=== PATIENT | female | born 2000 | race Caucasian/White ===

== ENCOUNTER → 2022-06-08 | Outpatient (CLI) | payer OTHER ==
--- NOTE | 2022-06-08 10:33 | US ---
EXAMINATION TYPE: Transabdominal DATE OF EXAM: 06/08/2022 9:53 AM COMPARISON: NONE CLINICAL HISTORY: Z36.89 CONFIRM GESTATIONAL AGE AND VIABILITY. Confirm dates. Positive beta hCG test . EXAM PERFORMED: Transabdominal (TA) EXAM MEASUREMENTS: GESTATIONAL AGE / DATING Physician Established: (10 weeks/4 days) EDC: 12/31/2022 Dates by LMP: (10 weeks/4 days) EDC: 12/31/2022 Dates by First Scan: No previous here Dates by Current Scan for: (11 weeks/0 days) EDC: 12/28/2022 MATERNAL ANATOMY Uterus: 9.1 x 6.7 x 8.7cm Right Ovary: 3.4 x 2.1 x 2.6cm, hypoechoic area seen measuring 1.7 x 1.4 x 1.8cm Left Ovary: 1.9 x 2.0 x 2.3cm, hypoechoic area seen measuring 1.9 x 1.0 x 1.9cm Post CDS / Adnexa: wnl Presence of free fluid: no Presence of corpus luteal cyst: possible right or left ovary Presence of subchorionic bleed: no GESTATION / SURVEY CRL: 4.1cm (11 weeks/0 days) Heart Rate: 170 bpm Rhythm: Normal IUP: Viable IUP Single live intrauterine gestation as pole and gestational sac identified. Yolk sac not clearly seen. No free fluid in pelvic cul-de-sac. Both ovaries identified with bilateral round to oval 1.0 to 2.0 cm hypoechoic lesions could reflect a corpus luteal cyst in either ovary. No extraovarian adnexal masses noted. IMPRESSION: Single live intrauterine gestation. Mean crown-rump length 4.1 cm corresponding to 11 wee ks 0 day old fetus.
== END | disposition home or self-care (01) ==
LOC: RADUSWWP 09:20
PROVIDERS: ATTEND Obstetrics & Gynecology
DX: Z36.89 Encounter for other specified antenatal screening (principal); Z3A.11 11 weeks gestation of pregnancy
CPT/HCPCS: 76801

== ENCOUNTER 2022-09-27 17:02 | Outpatient (CLI) | payer OTHER ==
[2022-09-27 18:52] LABS: Appearance,Urine Clear (Clear); Bilirubin,Urine Negative (Negative); Blood,Urine Negative (Negative); Color,Urine Light Yellow; Glucose,Urine (UA) Negative (Negative); Ketones,Urine Negative (Negative); Leukocyte Esterase,Urine Negative (Negative); Nitrite,Urine Negative (Negative); Protein,Urine Negative (Negative); Specific Gravity,Urine 1.009 (1.001-1.035); Urobilinogen,Urine <2.0 mg/dL (<2.0)
[2022-09-27 20:10] VITALS: BP 124/74; PULSE 97; RESP 16; TEMP 96.9
--- NOTE | 2022-09-29 12:01 | P.MSEPDOC ---
Presenting Problems - Arrival Data Date of Arrival on Unit: 09/27/22 Time of Arrival on Unit: 17:07 Mode of Transport: Ambulatory - Complaint OB-Reason for Admission/Chief Complaint: Vaginal Bleeding, Other Comment: 26 weeks and 3 days, braxon manning, spotting for 2 days. Medical History - Information : 1 Para: 0 Term: 0 : 0 Abortions: Spontaneous or Elective: 0 Number of Living Children: 0 - Gestational Age Gestational Age by MARKUS (wks/days): 26 Weeks and 3 Days Review of Systems - Review of Systems Constitutional: No problems Breast: No problems ENT: No problems Cardiovascular: No problems Respiratory: No problems Gastrointestinal: No problems Genitourinary: No problems Musculoskeletal: No problems Neurological: No problems Skin: No problems Vital Signs - Temperature Temperature: 96.9 F Temperature Source: Temporal Artery Scan - Pulse Right Radial Pulse Rate: 97 Pulse Assessment Method: Automatic Cuff - Respirations Respiratory Rate: 16 Oxygen Delivery Method: Room Air O2 Sat by Pulse Oximetry: 97 - Blood Pressure Right Arm Blood Pressure: 124/74 Blood Pressure Mean: 90 Blood Pressure Source: Automatic Cuff Medical Screen Scoring - Cervical Exam Dilation (cm): 0 Effacement (%): 0 - Uterine Contractions Intensity: Absent - Assessment - Baby A Baseline FHR: 145 Heart Rate - NICHD Category: Category I (Normal) Physician Notification - Physician Notified Physician Notified Date: 09/27/22 Physician Notified Time: 17:55 Physician: Sathya Ford New Order Received: Yes (monitor, u/a, cervical check. call results) Maternal Triage Index - Scheduled/Requesting Priority 5 Scheduled/Requesting Priority 5: Yes Criteria Met for Priority 5: spotting 3 days ago after intercourse. cramping in lower abd. yesterday and last night. pain scale 3-4. nothing now. urine clear. cervix closed Disposition - Disposition OB Disposition: Discharge to home, Written follow up instructions reviewed Discharge Date: 09/27/22 Discharge Time: 19:35 I agree with the RN Medical Screening Exam: Yes Case reviewed; plan agreed upon as documented in EMR&OBIX.: Yes Diagnosis: FALSE LABOR BEFORE 37 COMPLETED WEEKS OF GEST, THIRD TRI
== END 2022-09-27 19:35 | disposition home or self-care (01) ==
LOC: FBPOP 17:02
PROVIDERS: ATTEND Obstetrics & Gynecology
DX: O47.02 False labor before 37 completed weeks of gestation, second trimester (principal); Z3A.26 26 weeks gestation of pregnancy
CPT/HCPCS: 81003; G0463; 99213

== ENCOUNTER 2022-11-07 17:53 | Outpatient (CLI) | payer OTHER ==
[2022-11-07 19:20] VITALS: BP 124/68; PULSE 113; RESP 16; TEMP 98.6
--- NOTE | 2022-12-01 07:51 | P.MSEPDOC ---
Presenting Problems - Arrival Data Date of Arrival on Unit: 11/07/22 Time of Arrival on Unit: 17:53 Mode of Transport: Ambulatory - Complaint OB-Reason for Admission/Chief Complaint: Other Comment: v/d last vomited at noon Medical History - Information : 1 Para: 0 Term: 0 : 0 Abortions: Spontaneous or Elective: 0 Number of Living Children: 0 - Gestational Age Gestational Age by MARKUS (wks/days): 32 Weeks and 2 Days Review of Systems - Review of Systems Constitutional: No problems Breast: No problems ENT: No problems Cardiovascular: No problems Respiratory: No problems Gastrointestinal: No problems Genitourinary: No problems Musculoskeletal: No problems Neurological: No problems Skin: No problems Vital Signs - Temperature Temperature: 98.6 F Temperature Source: Axillary - Pulse Right Brachial Pulse Rate: 113 Pulse Assessment Method: Automatic Cuff - Respirations Respiratory Rate: 16 Oxygen Delivery Method: Room Air - Blood Pressure Right Arm Blood Pressure: 124/68 Blood Pressure Mean: 86 Blood Pressure Source: Automatic Cuff Medical Screen Scoring - Assessment - Baby A Baseline FHR: 145 Heart Rate - NICHD Category: Category I (Normal) NST: Reactive Physician Notification - Physician Notified Physician Notified Date: 11/07/22 Physician Notified Time: 18:10 Physician: Vijaya Padna New Order Received: Yes - Notification Comment Comment: reported pt visit to triage with complaints of d/v, last vomited around noon this afternoon. would like pt to be orally hydrated and have a popsicle, if tolerated she can be discharged. 1900 reported pt tolerating hydration well, having some contractions, rates her pain at zero. pt may be discharged home Maternal Triage Index - Non-Urgent/Priority 4 Non-Urgent Priority 4: Yes Criteria Met for Priority 4: vomiting Disposition - Disposition OB Disposition: Discharge to home Discharge Date: 11/07/22 Discharge Time: 19:05 I agree with the RN Medical Screening Exam: Yes Case reviewed; plan agreed upon as documented in EMR&OBIX.: Yes Diagnosis: VOMITING OF , UNSPECIFIED
== END 2022-11-07 19:05 | disposition home or self-care (01) ==
LOC: FBPOP 17:53
PROVIDERS: ATTEND Obstetrics & Gynecology
DX: O21.9 Vomiting of pregnancy, unspecified (principal); Z3A.32 32 weeks gestation of pregnancy
CPT/HCPCS: 59025; G0463; 99213

== ENCOUNTER 2022-12-15 11:44 | Inpatient (IN) | payer OTHER ==
[2022-12-15] MEDS ORDERED: TERBUTALINE 1 MG/ML VIAL SQ PRN (14:32)
[2022-12-15] MEDS ORDERED: LIDOCAINE 0.5% (PF) 5 MG/ML (50 ML SDV) SQ PRN (14:32)
[2022-12-15] MEDS ORDERED: OXYTOCIN 30 UNITS/500 ML NS 30 UNIT in SALINE 1 500ML.BAG IV SCH ×2 (14:45→18:30)
[2022-12-15 15:02] LABS: Basophils % (A) 0 %; Eosinophils % (A) 0 %; HCT 40.7 % (34.0-46.0); HGB 13.2 gm/dL (11.4-16.0); Lymphocytes # (A) 1.7 k/uL (1.0-4.8); Lymphocytes % (A) 12 %; MCH 26.5 pg (25.0-35.0); MCHC 32.5 g/dL (31.0-37.0); MCV 81.7 fL (80.0-100.0); Monocytes # (A) 0.4 k/uL (0-1.0); Monocytes % (A) 3 %; Neutrophils # (A) 11.9 k/uL (1.3-7.7); Neutrophils % (A) 84 %; Platelet Count 259 k/uL (150-450); RBC 4.97 m/uL (3.80-5.40); RDW 14.5 % (11.5-15.5); WBC 14.3 k/uL (3.8-10.6)
[2022-12-15] MEDS: LACTATED RINGERS 1,000 ML IV SCH ×2 (15:23→16:50)
[2022-12-15] MEDS ORDERED: ROPIVACAINE 5 MG/ML 20 ML AMPULE ONE (15:56)
[2022-12-15] MEDS ORDERED: SODIUM CHLORIDE 0.9% 100 ML BAG ONE (15:56)
[2022-12-15] MEDS ORDERED: fentaNYL (PF) 50 MCG/ML 5 ML AMP ONE (15:56)
[2022-12-15] MEDS ORDERED: LANOLIN CREAM 5 GM TUBE TOPICAL PRN (18:26)
[2022-12-15] MEDS ORDERED: SIMETHICONE 80 MG CHEWABLE PO PRN (18:26)
[2022-12-15] MEDS ORDERED: ZOLPIDEM 5 MG TAB PO PRN (18:26)
[2022-12-15] MEDS ORDERED: bisacodyL 10 MG SUPP RECTAL PRN (18:26)
[2022-12-15] MEDS ORDERED: HYDROCORTISONE 2.5% RECTAL CREAM 30 GM TUBE RECTAL PRN (18:26)
[2022-12-15] MEDS ORDERED: diphenhydrAMINE 25 MG CAP PO PRN (18:26)
[2022-12-15] MEDS ORDERED: BENZOCAINE/MENTHOL SPRAY 1 GM/SPRAY AEROSOL TOPICAL PRN (18:26)
[2022-12-15] MEDS ORDERED: ACETAMINOPHEN TAB 325 MG TAB PO PRN (18:26)
[2022-12-15] MEDS ORDERED: diphenhydrAMINE 50 MG/ML 1 ML VIAL IVP PRN (18:26)
[2022-12-15] MEDS ORDERED: LACTATED RINGERS 1,000 ML IV SCH (18:30)
--- NOTE | 2022-12-15 18:34 | P.HPOB ---
History of Present Illness H&P Date: 12/15/22 Chief Complaint: Contractions This patient is a pleasant 22-year-old 1 para 0 female estimated date of confinement 12/31/2022 estimated gestational age 37-5/7 weeks gestation who is admitted to labor and delivery with complaints of regular painful contractions. On admission patient was 2-3 cm dilated and progresses to 4 cm dilated. Patient is felt to be in active labor. care has been uncomplicated. Review of Systems Genitourinary: Reports Menstruation: Reports amenorrhea Past Medical History Past Medical History: No Reported History History of Any Multi-Drug Resistant Organisms: None Reported Past Surgical History: No Surgical Hx Reported Past Anesthesia/Blood Transfusion Reactions: No Reported Reaction Past Psychological History: Anxiety Smoking Status: Never smoker Past Alcohol Use History: None Reported Past Drug Use History: None Reported - Past Family History Mother History Unknown: Yes Family Medical History: Hyperlipidemia Medications and Allergies Home Medications Medication Instructions Recorded Confirmed Type Hem-Mcwc-Clnpn Acid 1 tab PO DAILY 09/27/22 12/15/22 History [-U Capsule (formulary)] Allergies Allergy/AdvReac Type Severity Reaction Status Date / Time No Known Allergies Allergy Verified 12/15/22 11:57 Exam Vital Signs Temp Pulse Resp BP Pulse Ox 12/15/22 14:55 98.1 F 96 16 130/77 98 12/15/22 14:31 98.1 F 96 16 130/77 98 12/15/22 11:57 98.1 F 94 16 130/77 Intake and Output 12/15/22 12/15/22 12/15/22 06:59 14:59 22:59 Other: # Voids 1 Weight 99.79 kg - OBG Physical Exam Abdomen: bowel sounds normal, no diffuse tenderness, no bruit present, no guarding noted, no hepatomegaly, no splenomegaly, no mass Vulva: both: normal Vagina: normal moisture, no discharge Cervix: no lesion (On admission patient is 4 cm dilated completely effaced -2 station.), no discharge Uterus: enlarged Results labs show she is O positive, rubella immune, RPR is nonreactive, hepatitis B is negative, HIV is nonreactive, group B strep was negative, Glucola was normal, most recent ultrasound showed baby 6 lbs. 13 oz. Result Diagrams: 12/15/22 14:50 Abnormal Lab Results - Last 24 Hours (Table) 12/15/22 Range/Units 14:50 WBC 14.3 H (3.8-10.6) k/uL Neutrophils # 11.9 H (1.3-7.7) k/uL Assessment and Plan Assessment: This is a pleasant 22-year-old 1 para 0 female 37-5/7 weeks' gestation admitted to labor and delivery in active labor. Plan is anticipate vaginal delivery. (1) 37 or more weeks gestation of Current Visit: Yes Status: Acute Code(s): [id number] - SNOMED Code(s): 80468278 (2) Active labor Current Visit: Yes Status: Acute Code(s): [id number] - SNOMED Code(s): 41329 6002
--- NOTE | 2022-12-15 18:37 | P.PROBDLV ---
Vaginal Delivery Note - . Vaginal Delivery Note: Normal spontaneous vaginal delivery viable female Apgars are 9 and 9 delivery time is 1749 hrs. Please see dictated H&P for intimate details of this patient's admission. In brief summary this is a pleasant 22-year-old 1 para 0 female 37-5/7 weeks admitted in active labor. Patient is artificial rupture membranes at 4 cm dilated for clear fluid labor progresses and she does get an epidural for pain control. Patient subsequently progresses quickly to 8-9 cm dilated and then does have a bradycardic episode. At this time position changes and IV fluids were instituted and this resolved. Patient then does get to complete pushes the head to the perineum. Posterior perineum is supported controlled delivery of 's head over the intact perineum. Infant's head is straight occiput anterior presentation. Mouth and nares are bulb suctioned. Patient is instructed to breathe. There is no evidence of a nuchal cord. The infant's anterior shoulder then spontaneously delivers followed by the rest of this 's body. This is a vigorous viable female Apgars are 9 and 9 delivery time is 1749 hrs. After delivery of the the infant is late on the mother's abdomen. The cord is very short therefore is doubly clamped and c ut. It appears to be trivascular. The placenta is then spontaneously delivered intact. Estimated blood loss is 250 mL. Inspection of the perineum shows a right vaginal sulcus tear. A right angle is placed and I'm able to easily visualize the apex of this tear and then is then reapproximated using a 3-0 Vicryl running locked fashion. Inspection of the rest the perineum shows a second-degree laceration and this is repaired with 3-0 Vicryl usual fashion. Additional sutures are placed posteriorly to reapproximate the tear. Excellent reapproximation is noted. All counts are correct 3. There are no complications. Infant and mother are stable in delivery room.
[2022-12-15] MEDS ORDERED: SENNOSIDES-DOCUSATE SODIUM 1 EACH TAB PO SCH (20:00)
[2022-12-16] MEDS: IBUPROFEN 600 MG TAB PO PRN ×2 (00:16→06:49)
--- NOTE | 2022-12-16 05:50 | P.PNOBGVD ---
Subjective - Subjective Patient reports: Reports appetite normal, Reports voiding normally, Reports pain well controlled, Reports ambulating normally : doing well Objective - Latest Vital Signs Latest vital signs: Vital Signs Temp Pulse Resp BP Pulse Ox 12/16/22 04:00 80 17 115/72 99 12/15/22 23:48 98.8 F 98 17 115/78 99 12/15/22 20:27 104 H 17 116/61 12/15/22 19:57 96 17 124/65 12/15/22 19:27 98 17 130/77 12/15/22 19:12 93 16 129/77 12/15/22 18:56 102 H 16 126/70 12/15/22 18:42 97 16 119/70 12/15/22 18:27 97 16 121/70 12/15/22 14:55 98.1 F 96 16 130/77 98 12/15/22 14:31 98.1 F 96 16 130/77 98 12/15/22 11:57 98.1 F 94 16 130/77 Intake and Output 12/15/22 12/15/22 12/16/22 14:59 22:59 06:59 Output Total 415 Balance -415 Output: Estimated Blood Loss 250 Output, Quantitative 165 Blood Loss Other: # Voids 1 Weight 99.79 kg - Exam Lungs: bilateral: normal Chest: Normal S1, Normal S2 Extremities: Present: normal Abdomen: Present: normal appearance, soft Uterus: Present: normal, firm - Labs Labs: Abnormal Lab Results - Last 24 Hours (Table) 12/15/22 Range/Units 14:50 WBC 14.3 H (3.8-10.6) k/uL Neutrophils # 11.9 H (1.3-7.7) k/uL Assessment and Plan Assessment: day #1. Patient is resting without complaints she wishes to go home later today. Vital signs are stable and she is afebrile. Uterus is firm nontender and she is having normal lochia. CBC is pending at time of this dictation. Plan is to continue routine care, check CBC, most likely discharge home later today. (1) 37 or more weeks gestation of Current Visit: Yes Status: Acute Code(s): [id number] - SNOMED Code(s): 25992660 (2) Active labor Current Visit: Yes Status: Acute Code(s): [id number] - SNOMED Code(s): 617888045
--- NOTE | 2022-12-16 05:53 | P.DS ---
Providers Date of admission: 12/15/22 13:53 Expected date of discharge: 12/16/22 Attending physician: Sathya Ford Primary care physician: Stated None - Discharge Diagnosis(es) (1) 37 or more weeks gestation of Current Visit: Yes Status: Acute (2) Active labor Current Visit: Yes Status: Acute Hospital Course: Please see dictated H&P for intimate details of this patient's admission. Brief summary is a pleasant 22-year-old 1 para 0 female 37-5/7 weeks who presents to labor and delivery in active labor. Patient quickly goes on have a vaginal delivery of viable female infant. Please see dictated delivery note. day 1 she is feeling well wishes to go home. Patient's felt be stable for discharge home follow up with me in 6 weeks. Procedures: Normal spontaneous vaginal delivery Patient Condition at Discharge: Good Plan - Discharge Summary New Discharge Prescriptions: New Ibuprofen [Motrin] 600 mg PO Q6HR PRN #30 tab PRN Reason: Mild Pain (Scale 1 To 3) No Action Ywu-Iyks-Rlzvh Acid [-U Capsule (formulary)] 1 tab PO DAILY Discharge Medication List Neq-Xkmv-Rzyfa Acid [-U Capsule (formulary)] 1 tab PO DAILY 09/27/22 [History] Ibuprofen [Motrin] 600 mg PO Q6HR PRN #30 tab 12/16/22 [Rx] Follow up Appointment(s)/Referral(s): Sathya Ford MD [STAFF PHYSICIAN] - 6 Weeks Patient Instructions/Handouts: Vaginal Delivery (DC) Activity/Diet/Wound Care/Special Instructions: No intercourse or anything per vagina for 6 weeks. Please call if any fever, chills, excessive vaginal bleeding, and/or abdominal pain. Discharge Disposition: HOME SELF-CARE
[2022-12-16 06:30] LABS: Basophils % (A) 0 %; Eosinophils % (A) 0 %; HCT 31.9 % (34.0-46.0); HGB 10.4 gm/dL (11.4-16.0); Lymphocytes # (A) 1.9 k/uL (1.0-4.8); Lymphocytes % (A) 14 %; MCH 26.8 pg (25.0-35.0); MCHC 32.5 g/dL (31.0-37.0); MCV 82.7 fL (80.0-100.0); Mean Platelet Volume 10.1; Monocytes # (A) 0.7 k/uL (0-1.0); Monocytes % (A) 5 %; Neutrophils # (A) 11.3 k/uL (1.3-7.7); Neutrophils % (A) 80 %; Platelet Count 194 k/uL (150-450); RBC 3.86 m/uL (3.80-5.40); RDW 14.7 % (11.5-15.5); WBC 14.1 k/uL (3.8-10.6)
[2022-12-16 09:05] VITALS: RESP 16
[2022-12-16 16:41] VITALS: BP 102/61; PULSE 100; TEMP 97.9
--- NOTE | 2022-12-16 18:52 | P.MSEPDOC ---
Presenting Problems - Arrival Data Date of Arrival on Unit: 12/15/22 Time of Arrival on Unit: 11:50 Mode of Transport: Ambulatory - Complaint OB-Reason for Admission/Chief Complaint: Possible Onset of Labor Comment: pt arrived c/o sparadic copntractions but denies any leaking of fluids since tuesday Medical History - Information : 1 Para: 0 Term: 0 : 0 Abortions: Spontaneous or Elective: 0 Number of Living Children: 0 - Gestational Age Gestational Age by MARKUS (wks/days): 37 Weeks and 5 Days Review of Systems - Review of Systems Constitutional: No problems Breast: No problems ENT: No problems Cardiovascular: No problems Respiratory: No problems Gastrointestinal: No problems Genitourinary: No problems Musculoskeletal: No problems Neurological: No problems Skin: No problems Vital Signs - Temperature Temperature: 97.9 F Temperature Source: Oral - Pulse Brachial Pulse Rate: 100 Pulse Assessment Method: Automatic Cuff - Respirations Respiratory Rate: 16 Oxygen Delivery Method: Room Air - Blood Pressure Right Arm Blood Pressure: 102/61 Blood Pressure Mean: 74 Blood Pressure Source: Automatic Cuff Medical Screen Scoring - Cervical Exam Dilation (cm): 4 Membranes: Intact - Assessment - Baby A Baseline FHR: 140 Heart Rate - NICHD Category: Category I (Normal) Physician Notification - Physician Notified Physician Notified Date: 12/15/22 Physician Notified Time: 12:45 - Notification Comment Comment: pt admitted for labor Disposition - Disposition OB Disposition: Admit I agree with the RN Medical Screening Exam: Yes Case reviewed; plan agreed upon as documented in EMR&OBIX.: Yes Diagnosis: ENCOUNTER FOR FULL-TERM UNCOMPLICATED DELIVERY
== END 2022-12-16 19:00 | disposition home or self-care (01) | DRG 560 ==
LOC: FBPOP 11:44 → 4FBP 13:53
PROVIDERS: ADMIT Obstetrics & Gynecology; ATTEND Obstetrics & Gynecology
PROC: 10E0XZZ Delivery of Products of Conception, External Approach (ICD-10-PCS; principal; 2022-12-15)
PROC: 0KQM0ZZ Repair Perineum Muscle, Open Approach (ICD-10-PCS; 2022-12-15)
PROC: 10907ZC Drainage of Amniotic Fluid, Therapeutic from Products of Conception, Via Natural or Artificial Opening (ICD-10-PCS; 2022-12-15)
PROC: 4A0HXCZ Measurement of Products of Conception, Cardiac Rate, External Approach (ICD-10-PCS; 2022-12-15)
DX: O70.1 Second degree perineal laceration during delivery (principal); O99.344 Other mental disorders complicating childbirth; F41.9 Anxiety disorder, unspecified; Z37.0 Single live birth; Z3A.37 37 weeks gestation of pregnancy
CPT/HCPCS: 59025; 85025; 86850; 86900; 86901; 99213